=== PATIENT | female | born 1995 | race Caucasian/White ===

== ENCOUNTER 2025-07-01 19:09 | Inpatient (IN) ==
[2025-07-01 19:58] LABS: Hematocrit (blood only) 35.4 % (37.0-47.0); Hemoglobin 11.2 g/dl (12.0-16.0); Immature Granulocytes # (auto) 0.05 K/uL (0.01-0.20); Immature Granulocytes % (auto) 0.4 %; Mean Corpuscular Hemoglobin 24.6 pg (25.0-34.0); Mean Corpuscular Volume 77.8 fL (80.0-100.0); Platelet Count 435 K/uL (130-400); RDW Standard Deviation 42.6 fL (36.4-46.3); Red Blood Count 4.55 M/uL (4.20-5.40); White Blood Count 13.35 K/ul (4.8-10.8)
[2025-07-01 20:00] LABS: Appearance Urine Cloudy (Clear); Bacteria Urine Automated 2+ (None Seen); Cast Urine Automated 0-2 /lpf (0-2); Glucose Urine UA Negative (Negative); RBC Urine Automated >20 /hpf (0-2); WBC Urine Automated 0-5 /hpf (0-5)
[2025-07-01 20:12] LABS: Pregnancy Test, Serum Negative (Negative)
[2025-07-01 20:16] LABS: Alanine Aminotransferase 15.0 U/L (7-52); Albumin Globulin Ratio 0.9 (0.9-2); Albumin Level 3.6 gm/dl (3.4-5.0); Alkaline Phosphatase 64.0 U/L (34-104); Anion Gap 6.0 (3-11); Bilirubin,Total 0.2 mg/dl (0.2-1.0); Blood Urea Nitrogen 13.0 mg/dl (6-23); Calcium 9.1 mg/dl (8.6-10.3); Carbon Dioxide 26.0 mmol/L (21-32); Chloride 105.0 mmol/L (98-107); Creatinine Clr Calc Pharmacy 179.3 ml/min; Globulin 3.9 gm/dl (2.5-4.0); Glucose 159.0 mg/dl (70-99(Fasting)); Lipase 17.0 U/L (11-82); Potassium 4.0 mmol/L (3.5-5.1); Sodium 137.0 mmol/L (136-145); Total Protein 7.5 gm/dl (6.0-8.3)
[2025-07-01] MEDS: MoRPHine SULFATE 4 MG/ML 1 ML CARP\\VIAL IV STA (20:33)
[2025-07-01] MEDS: ONDANSETRON INJ 2 MG/ML 2 ML VIAL IV STA (20:33)
[2025-07-01] MEDS: SODIUM CHLORIDE 0.9% 1,000 ML IV ONE (20:33)
[2025-07-01] MEDS: OPTIRAY 320 125ml IV ONE (21:05)
--- NOTE | 2025-07-01 22:03 | Emergency Department Note ---
Impression & Plan Calculus of distal right ureter, Acute UTI (urinary tract infection), Leukocytosis, Abdominal pain, acute, right lower quadrant, Hydronephrosis ED Provider Note HISTORY OF PRESENT ILLNESS: Patient is a 29-year-old female presenting with right lower quadrant abdominal pain. Patient reports symptoms started 3 days ago. She was seen at [facility] and had notable blood in her urine so they started her on Flomax and gave her a prescription for Zofran. She reports that yesterday she was feeling slightly improved, but today she had significant worsening of pain. Locates the pain to the right lower quadrant and it radiates up into her right flank. Denies ever having pain like this outside the last 3 days. Denies any history of abdominal surgeries. Denies any fevers or chills. She was also prescribed Bactrim that was mailed to the patient's pharmacy today from [facility], but the patient is unsure why she was sent this medicine, she was told she does not have a urine infection. Patient describes the pain in the right lower quadrant as cramping and sharp in etiology. Reports nausea and multiple episodes of vomiting. She has also had a few episodes of diarrhea. ROS: as above PHYSICAL EXAM: Constitutional: Patient appears in no acute distress. Morbidly obese HENT: Head: Normocephalic and atraumatic. Eyes: EOMI, PERRL Mouth/Throat: Mucous membranes moist. Neck: Trachea midline. Neck supple. Cardiovascular: RRR, No murmurs, rubs or gallops. Intact distal pulses. Pulmonary/Chest: No respiratory distress. Breath sounds clear and equal bilaterally. No wheezes or rales. Abdominal: Abdomen soft, no rebound or guarding. RLQ TTP Musculoskeletal: No edema, tenderness or deformity noted. Skin: Warm and dry. No rash, erythema, pallor or cyanosis Psychiatric: Appropriate mood and affect for situation. Neurological: Alert and keenly responsive. CN II-XII grossly intact, moving all extremities equally and fully. MDM: - Vitals signs showed hypertension - History obtained via patient. History as above. - Chronic conditions affecting care: None - Differential diagnoses include, but are not limited to: appendicitis; diverticulitis; ectopic ; ovarian cyst; ovarian torsion; ureteral calculi; UTI; pyelonephritis - Order placed for continuous cardiac monitoring. At this time, monitor showed rate of 83 bpm with normal sinus rhythm, per my interpretation. - External medical records reviewed. - Laboratory workup interpreted by myself showed leukocytosis (WBC 13.35); stable electrolytes; normal creatinine; negative hCG; normal AST/ALT; normal lipase - Patient initially given 1L NS, 4 mg IV morphine and 4 mg IV zofran in ER. - UA showed evidence of infection. Given 2g IV rocephin - CT abdomen/pelvis with IV contrast showed an obstructing 3 mm right UVJ stone causing moderate upstream hydronephrosis. - Discussed case with MIGUEL on for urology, Ray Duncan, at 22:35. He plans to evaluate patient and make recommendations - Discussion was had with bilingual case manager about patient's case and need for admission - Hospitalist consulted for admission - Patient admitted to [facility]ist service for further evaluation and management. ASSESSMENT AND PLAN: Diagnosis: Acute RLQ abdominal pain; calculus of distal right ureter; acute UTI; leukocytosis; hydronephrosis Plan: Admit Past Med/Surg History Problem List (Updated 07/01/25 @ 23:10 by Michelle Lara MD) Hydronephrosis (Acute) Abdominal pain, acute, right lower quadrant (Acute) Leukocytosis (Acute) Acute UTI (urinary tract infection) (Acute) Calculus of distal right ureter (Acute) Shoulder pain, acute (Acute) Pneumonia (Chronic) Flank pain (Acute) Left flank pain (Acute) Medical History (Updated 07/01/25 @ 23:10 by Michelle Lara MD) Nephrolithiasis Social History Smoking Status: Never smoker Preferred Language: Ukrainian Feels Safe at Home: Yes Allergies Allergies Allergy/AdvReac Type Severity Reaction Status Date / Time No Known Allergies Allergy Mild Unverified 07/07/23 17:04 Home Meds Home Medications Medication Instructions Recorded Confirmed No Known Home Medications 07/07/23 07/07/23 Results & Data (ED) Vital Signs Vital Signs - 24 hr 07/01/25 19:21 07/01/25 19:35 07/01/25 19:36 Temperature 36.6 C Temperature Source Temporal Artery Scan Pulse Rate 78 79 77 Pulse Rate from SpO2 Sensor Pulse Rhythm Regular Pulse Strength Normal Respiratory Rate 18 20 Respiratory Effort / Characteristics Non-Labored Spontaneous Respiratory Depth Normal Respiratory Pattern Regular Blood Pressure 176/101 H 136/84 Blood Pressure Mean 126 101 Blood Pressure Position Sitting Pulse Oximetry 96 97 Oxygen Delivery Method Room Air Sepsis Recent Fever Within 48 Hours No Sepsis New/Unexplained Change in Mental Status N/A Sepsis Action Taken by Nursing No Action Required 07/01/25 21:09 07/01/25 21:48 07/01/25 22:03 Temperature Temperature Source Pulse Rate 84 81 83 Pulse Rate from SpO2 Sensor 81 Pulse Rhythm Pulse Strength Respiratory Rate 20 20 17 Respiratory Effort / Characteristics Respiratory Depth Respiratory Pattern Blood Pressure 161/92 H 138/82 148/117 H Blood Pressure Mean 115 100 127 Blood Pressure Position Pulse Oximetry 97 98 Oxygen Delivery Method Sepsis Recent Fever Within 48 Hours Sepsis New/Unexplained Change in Mental Status Sepsis Action Taken by Nursing Laboratory Data 07/01/25 19:39 07/01/25 19:39 Lab Results 07/01/25 Range/Units 19:39 WBC 13.35 H (4.8-10.8) K/ul RBC 4.55 (4.20-5.40) M/uL Hgb 11.2 L (12.0-16.0) g/dl Hct 35.4 L (37.0-47.0) % MCV 77.8 L (80.0-100.0) fL MCH 24.6 L (25.0-34.0) pg MCHC 31.6 L (32.0-36.0) g/dL RDW Std Deviation 42.6 (36.4-46.3) fL RDW Coeff of Marylin 15.2 H (11.5-14.5) % Plt Count 435 H (130-400) K/uL MPV 9.4 (9.4-12.4) fL Immature Gran % (Auto) 0.4 % Neut % (Auto) 72.0 % Lymph % (Auto) 21.7 % [place] % (Auto) 4.6 % Eos % (Auto) 0.9 % Baso % (Auto) 0.4 % Neut # (Auto) 9.62 H (1.40-6.50) K/uL Lymph # (Auto) 2.90 (1.20-3.40) K/uL [place] # (Auto) 0.61 H (0.11-0.59) K/uL Eos # (Auto) 0.12 (0.00-0.50) K/uL Baso # (Auto) 0.05 (0.00-0.20) K/uL Immature Gran # (Auto) 0.05 (0.01-0.20) K/uL Sodium 137 (136-145) mmol/L Potassium 4.0 (3.5-5.1) mmol/L Chloride 105 (98-107) mmol/L Carbon Dioxide 26 (21-32) mmol/L Anion Gap 6 (3-11) BUN 13 (6-23) mg/dl Creatinine 0.65 (0.6-1.2) mg/dl Est Cr Clr Drug Dosing 179.3 ml/min eGFR 122.15 BUN/Creatinine Ratio 20.0 (10-20) Glucose 159 H (70-99(Fasting)) mg/dl Calcium 9.1 (8.6-10.3) mg/dl Total Bilirubin 0.2 (0.2-1.0) mg/dl AST 13 (13-39) U/L ALT 15 (7-52) U/L Alkaline Phosphatase 64 (34-104) U/L Total Protein 7.5 (6.0-8.3) gm/dl Albumin 3.6 (3.4-5.0) gm/dl Globulin 3.9 (2.5-4.0) gm/dl Albumin/Globulin Ratio 0.9 (0.9-2) Lipase 17 (11-82) U/L HCG, Qual Negative (Negative) Urine Color Yellow Urine Appearance Cloudy A (Clear) Urine pH 5.5 (4.5-7.5) Ur Specific [place] 1.025 (1.000-1.030) Urine Protein Negative (Negative) Urine Glucose (UA) Negative (Negative) Urine Ketones Trace H (Negative) Urine Blood 1+ H (Negative) Urine Nitrite Negative (Negative) Urine Bilirubin Negative (Negative) Urine Urobilinogen Negative (Negative) Ur Leukocyte Esterase Negative (Negative) Urine WBC (Auto) 0-5 (0-5) /hpf Urine RBC (Auto) >20 H (0-2) /hpf U Hyaline Cast (Auto) 0-2 (0-2) /lpf U Epithel Cells (Auto) 3-5 H (0-2) /hpf Urine Bacteria (Auto) 2+ H (None Seen) Urine Comment Administered Medications Discontinued Medications Sodium Chloride (Nss) 1,000 mls @ 999 mls/hr IV .Q1H1M ONE Stop: 07/01/25 21:23 Last Infusion: 07/01/25 21:51 Dose: Infused Documented By: Admin: 07/01/25 20:33 Dose: 999 mls/hr Documented By: ÁLVARO Ceftriaxone Sodium (Rocephin) 2,000 mg in 50 mls @ 100 mls/hr IV NOW STA Stop: 07/01/25 23:02 Last Admin: 07/01/25 22:56 Dose: 100 mls/hr Documented By: ÁLVARO Ioversol (Optiray 320 125ml) 115 ml IV ONCE ONE Stop: 07/01/25 21:05 Last Admin: 07/01/25 21:05 Dose: 115 ml Documented By: FIDEILNA Morphine Sulfate (Morphine Sulfate 4 Mg/Ml 1 Ml Carp\Vial) 4 mg IV NOW STA Stop: 07/01/25 20:24 Last Admin: 07/01/25 20:33 Dose: 4 mg Documented By: ÁLVARO Ondansetron HCl (Ondansetron Inj 2 Mg/Ml 2 Ml Vial) 4 mg IV NOW STA Stop: 07/01/25 20:24 Last Admin: 07/01/25 20:33 Dose: 4 mg Documented By: ÁLVARO Imaging Data Radiologist's Impression: Abdomen/Pelvis CT 07/01/25 20:23 Exam(s): CT ABDOMEN + PELVIS With Contrast IV Amt: 90ML OPTIRAY 320 EXAM: CT Abdomen and Pelvis With Intravenous Contrast CLINICAL HISTORY: Reason for exam: RLQ pain. PAIN: Other Pain: Eval for intraabd vs soft tissue sacral infxn OPTIRAY 320 90ML PT UNABLE TO LAY FLAT FOR SCAN BEST IMAGES POSSIBLE EK/JMP TECHNIQUE: Axial computed tomography images of the abdomen and pelvis with intravenous contrast. CTDI is 26.94 mGy and DLP is 1516.36 mGy-cm. Automated exposure control was utilized for the study. A dose lowering technique was utilized adhering to the principles of ALARA. CONTRAST: Patient received 90ML OPTIRAY 320 of IV contrast COMPARISON: No relevant prior studies available. FINDINGS: Lung bases: Unremarkable. ABDOMEN: Liver: Hepatomegaly. Gallbladder and bile ducts: Unremarkable. No calcified stones. No ductal dilation. Pancreas: Unremarkable. No mass. No ductal dilation. Spleen: Unremarkable. No splenomegaly. Adrenals: Unremarkable. No mass. Kidneys and ureters: Obstructing 3 mm right UVJ stone causing mild upstream hydroureteronephrosis. Left kidney and collecting system are normal. Stomach and bowel: Unremarkable. No obstruction. No mucosal thickening. PELVIS: Appendix: Appendix not visualized. No secondary signs of appendicitis. Bladder: Unremarkable. No mass. Reproductive: Unremarkable as visualized. ABDOMEN and PELVIS: Intraperitoneal space: Unremarkable. No free air, significant free fluid, or fluid collection. Bones/joints: No acute fracture. No dislocation. Soft tissues: Unremarkable. Vasculature: Unremarkable. No abdominal aortic aneurysm. Lymph nodes: Unremarkable. No enlarged lymph nodes. IMPRESSION: Obstructing 3 mm right UVJ stone causing mild upstream hydroureteronephrosis. Electronically signed by: Mariann Marshall M.D. 07/01/25 22:27 PM Discharge Plan Visit Data Chief Complaint: Kidney Stone Stated Complaint: KIDNEY STONES ED Provider: Michelle Lara Discharge Problem: Calculus of distal right ureter, Acute UTI (urinary tract infection), Leukocytosis, Abdominal pain, acute, right lower quadrant, Hydronephrosis Condition: Fair Forms Stand Alone Forms: [facility] [email or web address] Prescriptions Prescriptions: No Action No Known Home Medications Referrals Referrals: Chelo Argueta MD [Primary Care Provider] -
--- NOTE | 2025-07-01 22:28 | CT Scan Report ---
Exam(s): CT ABDOMEN + PELVIS With Contrast IV Amt: 90ML OPTIRAY 320 EXAM: CT Abdomen and Pelvis With Intravenous Contrast CLINICAL HISTORY: Reason for exam: RLQ pain. PAIN: Other Pain: Eval for intraabd vs soft tissue sacral infxn OPTIRAY 320 90ML PT UNABLE TO LAY FLAT FOR SCAN BEST IMAGES POSSIBLE EK/JMP TECHNIQUE: Axial computed tomography images of the abdomen and pelvis with intravenous contrast. CTDI is 26.94 mGy and DLP is 1516.36 mGy-cm. Automated exposure control was utilized for the study. A dose lowering technique was utilized adhering to the principles of ALARA. CONTRAST: Patient received 90ML OPTIRAY 320 of IV contrast COMPARISON: No relevant prior studies available. FINDINGS: Lung bases: Unremarkable. ABDOMEN: Liver: Hepatomegaly. Gallbladder and bile ducts: Unremarkable. No calcified stones. No ductal dilation. Pancreas: Unremarkable. No mass. No ductal dilation. Spleen: Unremarkable. No splenomegaly. Adrenals: Unremarkable. No mass. Kidneys and ureters: Obstructing 3 mm right UVJ stone causing mild upstream hydroureteronephrosis. Left kidney and collecting system are normal. Stomach and bowel: Unremarkable. No obstruction. No mucosal thickening. PELVIS: Appendix: Appendix not visualized. No secondary signs of appendicitis. Bladder: Unremarkable. No mass. Reproductive: Unremarkable as visualized. ABDOMEN and PELVIS: Intraperitoneal space: Unremarkable. No free air, significant free fluid, or fluid collection. Bones/joints: No acute fracture. No dislocation. Soft tissues: Unremarkable. Vasculature: Unremarkable. No abdominal aortic aneurysm. Lymph nodes: Unremarkable. No enlarged lymph nodes. IMPRESSION: Obstructing 3 mm right UVJ stone causing mild upstream hydroureteronephrosis. Electronically signed by: Mariann Marshall M.D. 07/01/25 22:27 PM
--- NOTE | 2025-07-01 22:55 | Urology Consultation ---
Date of Consultation July 01, 2025 Assessment & Plan (1) Nephrolithiasis: I evaluated the patient in room B-2 and the treating emergency room physician notes the patient is being admitted on the hospitalist service. From a urologic perspective we recommend the following: Provide analgesics Provide antiemetics Patient notes that she was prescribed Flomax at her previous intervention visit at the urgent care center. Would recommend continuous medication for expulsive therapy Strain all urine and save any kidney stones she passes for analysis Patient is noted to have bacteria but is otherwise noted to have a UA is not negative for infection. The treating emergency room physician has initiated antibiotics in form of Rocephin. I have added a urine culture to her labs and antibiotics be tailored based on results of culture The patient should be hydrated IV fluids I feel be acceptable for patient have clear liquids for the present time but she should be made n.p.o. after midnight tonight. Patient be reevaluated by [facility] urology team to determine if cystoscopic intervention will be required I discussed with the patient that she does have a 3 mm stone at the ureterovesical junction so there is good chance that she will be able to pass this stone At the time of my exam the patient is noted to be nontoxic-appearingthat she is normotensive without tachycardia, fever, or leukocytosis and therefore I feel conservative measures are warranted at this time Additional recommendations to be forthcoming based on her clinical course as it unfolds Supervising Physician Co-Signing Physician Notes Patient seen and examined independently Please see my progress note from 07/02/2025 for further details History of Present Illness Reason for Consultation: Nephrolithiasis History of Present Illness This is a 29-year-old female who presented emergency department secondary to right-sided back and flank pain for approximately 6 days. Patient notes that in addition to the right sided back/flank pain she is having some radiation of the pain to the right side of her abdomen. She has not had any fevers, shakes, or chills but she has had some intermittent episodes of nausea or vomiting. She notes that since the past 6 days the pain has been coming and going but over the past 24 hours has gotten markedly worse to the point when she felt she needed to be evaluated in the emergency department. She denies any dysuria but is having some urinary frequency. She denies any hematuria. She has had a kidney stone in the past and it has been many years (she believes was in 2017) and she was able to pass this kidney stone without any intervention. She does not follow r egularly with a urologist. Since arrival to hospital she has had labs and imaging which I independently reviewed. CT scan abdomen pelvis showed an obstructing 3 mm right ureterovesical kidney stone causing hydronephrosis. CBC revealed white blood cell count was elevated 13.3. Hemoglobin and hematocrit are 11.2 and 35.4. Platelet count was 1 35,000. Chemistry profile showed sodium and potassium were normal. Her BUN and creatinine were also normal. Urinalysis showed cloudy urine which had 2+ bacteria but it was negative for nitrites, leukocyte esterase, or pyuria. It is noteworthy to mention that the patient says prior to coming to the emergency department she was evaluated a few days ago at an urgent care center and she had a urine culture sent at that time which she was told was negative for infection. At the time of my interview she was resting comfortably in bed and she was in no distress. Allergies Allergy/AdvReac Type Severity Reaction Status Date / Time No Known Allergies Allergy Mild Unverified 07/07/23 17:04 Home Medications Medication Instructions Recorded Confirmed Type ondansetron HCl 4 mg tablet 4 mg PO Q8H PRN Nausea And Vomiting 07/01/25 07/01/25 History sulfamethoxazole 800 1 tab PO BID 07/01/25 07/01/25 History mg-trimethoprim 160 mg tablet tamsulosin 0.4 mg capsule 0.4 mg PO DAILY 07/01/25 07/01/25 History Patient History Medical History Nephrolithiasis Social History Smoking Status: Never smoker Second Hand Exposure: Yes; Do You Dip or Chew Tobacco: No; Tobacco Cessation Education Requested by Patient: No Hx Alcohol Use: No Hx Substance Use: No Preferred Language: Irish Communication Ability: Effective Can Line Operator Required: No Beliefs That Will Affect Care: None Current Living Situation: Spouse and Parent Other Information That Helps Us Care for You: No Feels Safe at Home: Yes Safety Concerns: Feels Safe At This Time Assistive Devices: None Review of Systems Review of Systems: All systems reviewed & are unremarkable except as noted in HPI & below Physical Exam Constitutional: WD/WN, vitals as above Eyes: no conjunctival abnormality ENMT: Ears: no hearing impairment and no external ear abnormality Mouth: no oropharynx abnormality Neck: trachea midline Respiratory: normal respiratory effort; no respiratory distress and no labored breathing Cardiovascular: Rate/Rhythm: regular rate and regular rhythm Gastrointestinal (Abdomen): At the time of my exam the patient's abdomen was soft, nontender to palpation without signs of peritonitis and was entirely benign Musculoskeletal: No calf tenderness Skin: no rashes Neurologic: moves all extremities Psychiatric: A+Ox3, euthymic affect At the time my exam the patient did not exhibit CVA tenderness with percussion bilaterally Results & Data Vital Signs (Past 12 Hours) Vital Signs Temp Pulse Resp BP Pulse Ox O2 Del Method 07/01/25 21:09 84 20 161/92 H 07/01/25 19:36 77 20 136/84 97 07/01/25 19:35 79 07/01/25 19:21 36.6 C 78 18 176/101 H 96 Room Air PG Care Time/CCT Total # of Minutes Spent Total Time Spent with Patient: Total time spent is greater than 50% in coordination of care (as documented) at patient's floor/unit and/or counseling patient: Coding Level of Care Code 50546 IN/OBS CONSULT LVL 5,80M Diagnoses Nephrolithiasis N20.0
[2025-07-01] MEDS: cefTRIAXone SODIUM 2,000 MG/50 ML BAG IV STA (22:56)
[2025-07-01] MEDS ORDERED: MoRPHine SULFATE 4 MG/ML 1 ML CARP\\VIAL IV PRN (23:59)
--- NOTE | 2025-07-02 00:04 | History & Physical Report ---
Date of Service July 02, 2025 Assessment & Plan (1) Calculus of distal right ureter: (2) Hydronephrosis: (3) Acute UTI (urinary tract infection): Plan 29-year-old female with no significant past medical or surgical history presenting with persistent ongoing right flank pain and urinary symptoms. Found to have a 3 mm obstructing stone with hydronephrosis. Patient afebrile, hemodynamically stable. She does have bacteria in the urine otherwise no suggestion of infection #Distal right ureteral calcification with hydronephrosis Admit to medical Keep n.p.o. IV fluids with LR at 125 mL/h x 2 L Pain control with Tylenol, morphine as needed Zofran as needed for nausea #Bacteriuria in setting of obstructive stone Ceftriaxone 2 g IV daily #AnemiaHgb = 11.2, HCT = 35.4. Patient microcytic with MCV = 77.8 Check iron studies with morning labs History of Present Illness Chief Complaint: right flank pain Primary Care Provider: Chelo Argueta MD Juana Munoz is a 29-year-old female with no significant past medical or surgical history presenting with severe right flank pain. Patient reports that she has been dealing with symptoms over the last 6 to 7 days. She has been feeling sick over the last several days. 3 days ago she developed some urinary symptoms such as dysuria and frequency. This pain has been increasing in severity. It is located in her right flank with radiation into the right groin. She has had ongoing persistent nausea. Patient was seen in urgent care on 06/29 and was diagnosed with a kidney stone based on symptoms. She was prescribed Zofran and Flomax which she has been taking. Symptoms have been persistently worsening which is why patient presents to the ER today. In the ER she is afebrile, hemodynamically stable and nontoxic in appearance ER course: Normal saline Zofran Morphine Ceftriaxone Allergies Allergy/AdvReac Type Severity Reaction Status Date / Time No Known Allergies Allergy Mild Unverified 07/07/23 17:04 Home Medications Medication Instructions Recorded Confirmed Type ondansetron HCl 4 mg tablet 4 mg PO Q8H PRN Nausea And Vomiting 07/01/25 07/01/25 History sulfamethoxazole 800 1 tab PO BID 07/01/25 07/01/25 History mg-trimethoprim 160 mg tablet tamsulosin 0.4 mg capsule 0.4 mg PO DAILY 07/01/25 07/01/25 History Past Med/Surg History Problem List Hydronephrosis (Acute) Abdominal pain, acute, right lower quadrant (Acute) Leukocytosis (Acute) Acute UTI (urinary tract infection) (Acute) Calculus of distal right ureter (Acute) Shoulder pain, acute (Acute) Pneumonia (Chronic) Flank pain (Acute) Left flank pain (Acute) Medical History Nephrolithiasis Social History Smoking Status: Never smoker Second Hand Exposure: Yes; Do You Dip or Chew Tobacco: No; Tobacco Cessation Education Requested by Patient: No Hx Alcohol Use: No Hx Substance Use: No Preferred Language: American Communication Ability: Effective Splicer Apprentice Required: No Beliefs That Will Affect Care: None Current Living Situation: Spouse and Parent Other Information That Helps Us Care for You: No Feels Safe at Home: Yes Safety Concerns: Feels Safe At This Time Assistive Devices: None Review of Systems Review of Systems: All systems reviewed & are unremarkable except as noted in HPI & below Physical Exam Physical Exam: General: patient resting comfortably, NAD, non-toxic in appearance, AA&O x 4 Skin: warm, dry, intact, no rashes or lesions HEENT: NC/AT, PERRL, EOMI, anicteric sclera, conjunctiva without injection, external ear normal to inspection and nontender, nares patent, moist mucus membranes, dentition intact, no oropharyngeal lesions, neck supple, trachea midline, no LAD, no thyromegaly, no JVD Heart: +S1/S2, regular, no m/r/g Lungs: equal air entry bilaterally, no rales/rhonchi/wheezes Abd: +BS, soft, NT/ND, no masses/organomegaly/ascites Ext: warm, 2+ pulses in UE/LE bilaterally, no clubbing/cyanosis or edema Neuro: nonfocal, patient AA&O x 4, speech intact, no facial droop, moving all extremities on command with equal strength 5/5 Results & Data Results & Data Vital Signs (Past 12 Hours) Vital Signs Temp Pulse Resp BP Pulse Ox O2 Del Method 07/01/25 23:26 79 07/01/25 22:03 83 17 148/117 H 98 07/01/25 21:48 81 20 138/82 97 07/01/25 21:09 84 20 161/92 H 07/01/25 19:36 77 20 136/84 97 07/01/25 19:35 79 07/01/25 19:21 36.6 C 78 18 176/101 H 96 Room Air Laboratory Results Laboratory Results WBC 13.35 K/ul (4.8-10.8) H 07/01/25 19:39 RBC 4.55 M/uL (4.20-5.40) 07/01/25 19:39 Hgb 11.2 g/dl (12.0-16.0) L 07/01/25 19:39 Hct 35.4 % (37.0-47.0) L 07/01/25 19:39 MCV 77.8 fL (80.0-100.0) L 07/01/25 19:39 MCH 24.6 pg (25.0-34.0) L 07/01/25 19:39 MCHC 31.6 g/dL (32.0-36.0) L 07/01/25 19:39 RDW Std Deviation 42.6 fL (36.4-46.3) 07/01/25 19:39 RDW Coeff of Marylin 15.2 % (11.5-14.5) H 07/01/25 19:39 Plt Count 435 K/uL (130-400) H 07/01/25 19:39 MPV 9.4 fL (9.4-12.4) 07/01/25 19:39 Immature Gran % (Auto) 0.4 % 07/01/25 19:39 Neut % (Auto) 72.0 % 07/01/25 19:39 Lymph % (Auto) 21.7 % 07/01/25 19:39 Early % (Auto) 4.6 % 07/01/25 19:39 Eos % (Auto) 0.9 % 07/01/25 19:39 Baso % (Auto) 0.4 % 07/01/25 19:39 Neut # (Auto) 9.62 K/uL (1.40-6.50) H 07/01/25 19:39 Lymph # (Auto) 2.90 K/uL (1.20-3.40) 07/01/25 19:39 Early # (Auto) 0.61 K/uL (0.11-0.59) H 07/01/25 19:39 Eos # (Auto) 0.12 K/uL (0.00-0.50) 07/01/25 19:39 Baso # (Auto) 0.05 K/uL (0.00-0.20) 07/01/25 19:39 Immature Gran # (Auto) 0.05 K/uL (0.01-0.20) 07/01/25 19:39 Sodium 137 mmol/L (136-145) 07/01/25 19:39 Potassium 4.0 mmol/L (3.5-5.1) 07/01/25 19:39 Chloride 105 mmol/L (98-107) 07/01/25 19:39 Carbon Dioxide 26 mmol/L (21-32) 07/01/25 19:39 Anion Gap 6 (3-11) 07/01/25 19:39 BUN 13 mg/dl (6-23) 07/01/25 19:39 Creatinine 0.65 mg/dl (0.6-1.2) 07/01/25 19:39 Est Cr Clr Drug Dosing 179.3 ml/min 07/01/25 19:39 eGFR 122.15 07/01/25 19:39 BUN/Creatinine Ratio 20.0 (10-20) 07/01/25 19:39 Glucose 159 mg/dl (70-99(Fasting)) H 07/01/25 19:39 Calcium 9.1 mg/dl (8.6-10.3) 07/01/25 19:39 Total Bilirubin 0.2 mg/dl (0.2-1.0) 07/01/25 19:39 AST 13 U/L (13-39) 07/01/25 19:39 ALT 15 U/L (7-52) 07/01/25 19:39 Alkaline Phosphatase 64 U/L (34-104) 07/01/25 19:39 Total Protein 7.5 gm/dl (6.0-8.3) 07/01/25 19:39 Albumin 3.6 gm/dl (3.4-5.0) 07/01/25 19:39 Globulin 3.9 gm/dl (2.5-4.0) 07/01/25 19:39 Albumin/Globulin Ratio 0.9 (0.9-2) 07/01/25 19:39 Lipase 17 U/L (11-82) 07/01/25 19:39 HCG, Qual Negative (Negative) 07/01/25 19:39 Urine Color Yellow 07/01/25 19:39 Urine Appearance Cloudy (Clear) A 07/01/25 19:39 Urine pH 5.5 (4.5-7.5) 07/01/25 19:39 Ur Specific [place] 1.025 (1.000-1.030) 07/01/25 19:39 Urine Protein Negative (Negative) 07/01/25 19:39 Urine Glucose (UA) Negative (Negative) 07/01/25 19:39 Urine Ketones Trace (Negative) H 07/01/25 19:39 Urine Blood 1+ (Negative) H 07/01/25:39 Urine Nitrite Negative (Negative) 07/01/25 19:39 Urine Bilirubin Negative (Negative) 07/01/25 19:39 Urine Urobilinogen Negative (Negative) 07/01/25 19:39 Ur Leukocyte Esterase Negative (Negative) 07/01/25 19:39 Urine WBC (Auto) 0-5 /hpf (0-5) 07/01/25 19:39 Urine RBC (Auto) >20 /hpf (0-2) H 07/01/25 19:39 U Hyaline Cast (Auto) 0-2 /lpf (0-2) 07/01/25 19:39 U Epithel Cells (Auto) 3-5 /hpf (0-2) H 07/01/25 19:39 Urine Bacteria (Auto) 2+ (None Seen) H 07/01/25 19:39 Urine Comment 07/01/25 19:39 Impressions Abdomen/Pelvis CT 07/01/25 20:23 Exam(s): CT ABDOMEN + PELVIS With Contrast IV Amt: 90ML OPTIRAY 320 EXAM: CT Abdomen and Pelvis With Intravenous Contrast CLINICAL HISTORY: Reason for exam: RLQ pain. PAIN: Other Pain: Eval for intraabd vs soft tissue sacral infxn OPTIRAY 320 90ML PT UNABLE TO LAY FLAT FOR SCAN BEST IMAGES POSSIBLE EK/JMP TECHNIQUE: Axial computed tomography images of the abdomen and pelvis with intravenous contrast. CTDI is 26.94 mGy and DLP is 1516.36 mGy-cm. Automated exposure control was utilized for the study. A dose lowering technique was utilized adhering to the principles of ALARA. CONTRAST: Patient received 90ML OPTIRAY 320 of IV contrast COMPARISON: No relevant prior studies available. FINDINGS: Lung bases: Unremarkable. ABDOMEN: Liver: Hepatomegaly. Gallbladder and bile ducts: Unremarkable. No calcified stones. No ductal dilation. Pancreas: Unremarkable. No mass. No ductal dilation. Spleen: Unremarkable. No splenomegaly. Adrenals: Unremarkable. No mass. Kidneys and ureters: Obstructing 3 mm right UVJ stone causing mild upstream hydroureteronephrosis. Left kidney and collecting system are normal. Stomach and bowel: Unremarkable. No obstruction. No mucosal thickening. PELVIS: Appendix: Appendix not visualized. No secondary signs of appendicitis. Bladder: Unremarkable. No mass. Reproductive: Unremarkable as visualized. ABDOMEN and PELVIS: Intraperitoneal space: Unremarkable. No free air, significant free fluid, or fluid collection. Bones/joints: No acute fracture. No dislocation. Soft tissues: Unremarkable. Vasculature: Unremarkable. No abdominal aortic aneurysm. Lymph nodes: Unremarkable. No enlarged lymph nodes. IMPRESSION: Obstructing 3 mm right UVJ stone causing mild upstream hydroureteronephrosis. Electronically signed by: Mariann Marshall M.D. 07/01/25 22:27 PM Code Status & VTE Plan VTE Prophylaxis Plan VTE Prophylaxis will be ordered: Yes PG Care Time/CCT Total # of Minutes Spent Total Time Spent with Patient: Total time spent is greater than 50% in coordination of care (as documented) at patient's floor/unit and/or counseling patient: Coding Level of Care Code 85650 INT INP/OBS CARE 3/75MIN Diagnoses Calculus of distal right ureter N20.1 Hydronephrosis N13.30 Acute UTI (urinary tract infection) N39.0
[2025-07-02] MEDS: LACTATED RINGER'S 1,000 ML IV SCH (01:45)
[2025-07-02 01:55] VITALS: PULSE 83
[2025-07-02] MEDS: ACETAMINOPHEN 325 MG TAB PO PRN (03:19)
[2025-07-02 07:52] VITALS: BP 133/81; RESP 16; TEMP 97.9; O2SAT 96
[2025-07-02] MEDS: ONDANSETRON INJ 2 MG/ML 2 ML VIAL IV PRN (08:00)
[2025-07-02] MEDS: TAMSULOSIN HCL 0.4 MG CAP PO SCH (08:00)
[2025-07-02 08:01] LABS: Hematocrit (blood only) 35.5 % (37.0-47.0); Hemoglobin 11.4 g/dl (12.0-16.0); Immature Granulocytes # (auto) 0.04 K/uL (0.01-0.20); Immature Granulocytes % (auto) 0.3 %; Mean Corpuscular Hemoglobin 25.2 pg (25.0-34.0); Mean Corpuscular Volume 78.5 fL (80.0-100.0); Platelet Count 397 K/uL (130-400); RDW Standard Deviation 43.4 fL (36.4-46.3); Red Blood Count 4.52 M/uL (4.20-5.40); White Blood Count 12.50 K/ul (4.8-10.8)
[2025-07-02 08:22] LABS: Anion Gap 9.0 (3-11); Blood Urea Nitrogen 11.0 mg/dl (6-23); Calcium 8.9 mg/dl (8.6-10.3); Carbon Dioxide 26.0 mmol/L (21-32); Chloride 104.0 mmol/L (98-107); Creatinine Clr Calc Pharmacy 215.8 ml/min; Glucose 93.0 mg/dl (70-99(Fasting)); Iron 27.0 mcg/dl (35-150); Potassium 4.1 mmol/L (3.5-5.1); Sodium 139.0 mmol/L (136-145); Total Iron Binding Cap Calc 311.0 mcg/dl (250-450); Transferrin 222.0 mg/dl (200-360); Transferrin (FE) Percent Satur 9.0 % (15-50)
--- NOTE | 2025-07-02 09:57 | Urology Progress Note ---
Date of Service July 02, 2025 Assessment & Plan (1) Hydronephrosis: (2) Calculus of distal right ureter: Plan Extremely small, distal right ureteral calculus Very high probability of spontaneous passage of given time Plan for discharge home today and outpatient trial of passage Send with Flomax, NSAIDs for discomfort, return if fevers, chills, infectious type symptoms Otherwise we will plan for outpatient follow-up Admission and Anticipated Discharge Date Admission Date: July 01, 2025 Subjective Patient admitted last night secondary to an extremely distal right ureteral calculus This is a small stone that should have a very high probability of passage and she has felt well since admission No residual pain at present Physical Exam Constitutional: well developed and well nourished Respiratory: no respiratory distress Cardiovascular: Extremities: no pedal edema Gastrointestinal (Abdomen): Inspection/Auscultation: abdomen normal to inspection Results & Data Vital Signs (Past 12 Hours) Vital Signs Temp Pulse Pulse Resp BP BP Pulse Ox 07/02/25 07:50 36.6 C 83 16 133/81 96 07/02/25 01:53 36.7 C 83 18 122/86 97 07/01/25 23:26 79 07/01/25 23:00 76 16 127/83 07/01/25 22:03 83 17 148/117 H 98 O2 Del Method 07/02/25 07:50 Room Air 07/02/25 01:53 Room Air 07/01/25 23:26 07/01/25 23:00 07/01/25 22:03 PG Care Time/CCT Total # of Minutes Spent Total Time Spent with Patient: Total time spent is greater than 50% in coordination of care (as documented) at patient's floor/unit and/or counseling patient: Coding Level of Care Code 91582 SUB INP/OBS CARE 2/35MIN Diagnoses Hydronephrosis N13.30 Calculus of distal right ureter N20.1
--- NOTE | 2025-07-02 11:08 | Discharge Summary ---
Discharge Summary Date of Service July 02, 2025 Principal Dx & Hospital Course #1 = Principal Diagnosis (1) Calculus of distal right ureter: (2) Hydronephrosis: (3) Acute UTI (urinary tract infection): Plan #Distal right ureteral calcification with hydronephrosis 29-year-old female with no significant past medical or surgical history presenting with persistent ongoing right flank pain and urinary symptoms. Found to have a 3 mm obstructing stone with hydronephrosis. Patient afebrile, hemodynamically stable. She does have bacteria in the urine. Pain well controlled with PO medications. Seen by urology - suspect patient will be able to pass stone on her own, okay to discharge home with flomax and pain control. Continue to strain urine, outpatient urology follow up. #Bacteriuria in setting of obstructive stone Received ceftriaxone - will continue short course of ciprofloxacin #AnemiaHgb = 11.2, HCT = 35.4. Patient microcytic with MCV = 77.8 Iron studies consitent with [facility] - rec OTC fe supplementation with Vitamin C Dispo - stable for discharge home Admission HPI Per Admitting Provider Juana Munoz is a 29-year-old female with no significant past medical or surgical history presenting with severe right flank pain. Patient reports that she has been dealing with symptoms over the last 6 to 7 days. She has been feeling sick over the last several days. 3 days ago she developed some urinary symptoms such as dysuria and frequency. This pain has been increasing in severity. It is located in her right flank with radiation into the right groin. She has had ongoing persistent nausea. Patient was seen in urgent care on 06/29 and was diagnosed with a kidney stone based on symptoms. She was prescribed Zofran and Flomax which she has been taking. Symptoms have been persistently worsening which is why patient presents to the ER today. In the ER she is afebrile, hemodynamically stable and nontoxic in appearance ER course: Normal saline Zofran Morphine Ceftriaxone Discharge Exam General: NAD, VS as above Resp: normal respiratory effort, lungs clear to auscultation CV: RRR, no murmur, Abd: normal bowel sounds, non tender, soft Back: no flank pain Extremities: Moves all extremities, no edema Neuro: A&O x3, Skin: intact, no lesions noted Discharge Plan Discharge Items Patient Disposition: Home - Self-Care Reason For Visit: Renal stone Discharge Diagnosis: Kidney stone Condition on Discharge: Fair Activity: Resume your previous activity Driving/Machine Use: No limitations Weightbearing: Full weightbearing Non-emergency contact: Primary Care Provider and Urologist Call non-emergency contact if: you have any medication questions, your symptoms worsen, your pain is not controlled and your temperature is above 101 Follow-up/Referrals: Won Cook MD [Physician] - (outpatient follow up - kidney stone ) Chelo Argueta MD [Primary Care Provider] - (follow up within one week ) Diet: Regular Addtl Attending Provider Instructions: Ms. Seaman, You were hospitalized after having flank pain found to be from kidney stones, thankfully this is small and you have the posibility of passing this on your own. Your urine was also concerning for infection so you have been started on antibiotics, these will be continued at discharge. You will need to follow up with urology for futher follow up. Medication Changes/Recommendations: * Continue flomax daily until stone passes - this is to help with easier passage of urine * Pyridium as needed for pain with urination - this can cause your urine/feces to be discolored/orange * Ciprofloxacin - twice a day, take the first dose PM 10/20. Please take the entire course, even if you feel well. * Pain control - tylenol and ibuprofen for pain, toradol for breakthrough pain (not to be taken at the same time as ibuprofen) The urology office should be contacting you to schedule and appointment. If you do not hear from them by Wednesday please contact them at [phone] Please contact the urologist if you have any uncontrolled pain, fevers > 100F, or inability to urinate. *You were also found to be iron deficent. Recommend starting OTC iron supplementation every other day with Vitamin C or a glass of orange juice and to follow up with your PCP regarding this. Activity: You can do normal everyday activities as your body allows. Take rest breaks if you feel tired. Do not overexert. Stop activity if you have pain, shortness of breath or feel dizzy. CONTACT YOUR PRIMARY CARE PROVIDER if you experience any of the following: Shortness of breath or difficulty breathing Fevers or chills Feeling tired with normal activity or experiencing dizziness or fainting Difficulty following your treatment plan, or difficulty taking medications Contact urlogy: -inability to urinate - worsening pain CALL 911 OR GO TO THE EMERGENCY DEPARTMENT if you experience any of the following: Severe abdominal pain or nausea/vomiting Severe chest pain, or chest pain that radiates (moves) to your jaw or arm Sudden, severe shortness of breath or difficulty breathing Thank you for allowing us to participate in your care. Pending Studies at Discharge: Yes (urine culture ) Stand-Alone Forms: My [facility] [employer], Smoking Cessation Medications and DC Order Prescriptions: New ciprofloxacin HCl 500 mg tablet 500 mg PO BID Qty: 4 0RF phenazopyridine [Pyridium] 100 mg tablet 100 mg PO Q8H PRN (Reason: pain) Qty: 6 0RF ketorolac 10 mg tablet 10 mg PO Q8H PRN (Reason: pain) Qty: 10 0RF Continued ondansetron HCl 4 mg tablet 4 mg PO Q8H PRN (Reason: Nausea And Vomiting) tamsulosin 0.4 mg capsule 0.4 mg PO DAILY Qty: 14 0RF Discontinued sulfamethoxazole-trimethoprim 800-160 mg tablet 1 tab PO BID Rx Instructions: LF: 06/30/25 PICKED UP 07/01/2025 NOT STARTED, 10 DOSES REMAINING Discharge Orders: Discharge Order (Routine); Ordered 07/02/25 Ordered By: Zoya Ramirez/Other Patient Handouts: Kidney Stones Expectant Tx Admission Data Admit Date/Time: 07/01/25 23:59 Attending Provider: Wendi Carrasco Admit Provider: Zenaida Hardwick Primary Care Provider: Chelo Argueta Other Providers: Zenaida Hardwick; Won Cook Other Interventions: Discharge Summary Assessment (RN) Last Done: 07/02/25 11:22 Hospital Stay Data Consultations 07/01/25 23:05 ED Decision to Admit Stat 07/01/25 23:59 Consult Urology Routine Diagnostic Imagining Performed Abdomen/Pelvis CT 07/01/25 20:23 Exam(s): CT ABDOMEN + PELVIS With Contrast IV Amt: 90ML OPTIRAY 320 EXAM: CT Abdomen and Pelvis With Intravenous Contrast CLINICAL HISTORY: Reason for exam: RLQ pain. PAIN: Other Pain: Eval for intraabd vs soft tissue sacral infxn OPTIRAY 320 90ML PT UNABLE TO LAY FLAT FOR SCAN BEST IMAGES POSSIBLE EK/JMP TECHNIQUE: Axial computed tomography images of the abdomen and pelvis with intravenous contrast. CTDI is 26.94 mGy and DLP is 1516.36 mGy-cm. Automated exposure control was utilized for the study. A dose lowering technique was utilized adhering to the principles of ALARA. CONTRAST: Patient received 90ML OPTIRAY 320 of IV contrast COMPARISON: No relevant prior studies available. FINDINGS: Lung bases: Unremarkable. ABDOMEN: Liver: Hepatomegaly. Gallbladder and bile ducts: Unremarkable. No calcified stones. No ductal dilation. Pancreas: Unremarkable. No mass. No ductal dilation. Spleen: Unremarkable. No splenomegaly. Adrenals: Unremarkable. No mass. Kidneys and ureters: Obstructing 3 mm right UVJ stone causing mild upstream hydroureteronephrosis. Left kidney and collecting system are normal. Stomach and bowel: Unremarkable. No obstruction. No mucosal thickening. PELVIS: Appendix: Appendix not visualized. No secondary signs of appendicitis. Bladder: Unremarkable. No mass. Reproductive: Unremarkable as visualized. ABDOMEN and PELVIS: Intraperitoneal space: Unremarkable. No free air, significant free fluid, or fluid collection. Bones/joints: No acute fracture. No dislocation. Soft tissues: Unremarkable. Vasculature: Unremarkable. No abdominal aortic aneurysm. Lymph nodes: Unremarkable. No enlarged lymph nodes. IMPRESSION: Obstructing 3 mm right UVJ stone causing mild upstream hydroureteronephrosis. Electronically signed by: Mariann Marshall M.D. 07/01/25 22:27 PM Pending Results Patient Have Any Pending Studies at Discharge: Yes (urine culture ) Discharge Instructions Given to Patient (Per Discharging Provider) Ms. Seaman, You were hospitalized after having flank pain found to be from kidney stones, thankfully this is small and you have the posibility of passing this on your own. Your urine was also concerning for infection so you have been started on antibiotics, these will be continued at discharge. You will need to follow up with urology for futher follow up. Medication Changes/Recommendations: * Continue flomax daily until stone passes - this is to help with easier passage of urine * Pyridium as needed for pain with urination - this can cause your urine/feces to be discolored/orange * Ciprofloxacin - twice a day, take the first dose PM 07/02. Please take the entire course, even if you feel well. * Pain control - tylenol and ibuprofen for pain, toradol for breakthrough pain (not to be taken at the same time as ibuprofen) The urology office should be contacting you to schedule and appointment. If you do not hear from them by Wednesday please contact them at [phone] Please contact the urologist if you have any uncontrolled pain, fevers > 100F, or inability to urinate. *You were also found to be iron deficent. Recommend starting OTC iron supplementation every other day with Vitamin C or a glass of orange juice and to follow up with your PCP regarding this. Activity: You can do normal everyday activities as your body allows. Take rest breaks if you feel tired. Do not overexert. Stop activity if you have pain, shortness of breath or feel dizzy. CONTACT YOUR PRIMARY CARE PROVIDER if you experience any of the following: Shortness of breath or difficulty breathing Fevers or chills Feeling tired with normal activity or experiencing dizziness or fainting Difficulty following your treatment plan, or difficulty taking medications Contact urlogy: -inability to urinate - worsening pain CALL 911 OR GO TO THE EMERGENCY DEPARTMENT if you experience any of the following: Severe abdominal pain or nausea/vomiting Severe chest pain, or chest pain that radiates (moves) to your jaw or arm Sudden, severe shortness of breath or difficulty breathing Thank you for allowing us to participate in your care. Total Time Total Time Spent Total Time Spent (In Minutes): Time spent day of discharge 35 minutes including direct patient care, medication reconciliation, documentation, review of labs and images, and coordination of care. Coding Level of Care Code 81170 INP/OBS DISCH >30 MIN Diagnoses Calculus of distal right ureter N20.1 Hydronephrosis N13.30 Acute UTI (urinary tract infection) N39.0
[2025-07-02] MEDS ORDERED: cefTRIAXone SODIUM 2,000 MG/50 ML BAG IV SCH (21:00)
== END 2025-07-02 12:23 | disposition home or self-care (01) | DRG 690 ==
LOC: ED 19:09 → 3N 23:59 → SUATTDRO 23:59 → 3N 07-02 01:22